=== PATIENT | female | born 1990 | race African-American/Black ===

== ENCOUNTER 2019-04-01 10:16 | Emergency (ER) | payer MEDICAID, OTHER ==
[~2019-04-01] VITALS: Ht 162.6 cm; Wt 105.0 kg
[2019-04-01] MEDS ORDERED: ACETAMINOPHEN 325MG TABLET PO ONE (11:00)
[2019-04-01 11:52] VITALS: BP 127/73
== END 2019-04-01 11:56 | disposition home or self-care (01) ==
LOC: ER 10:24
DX: S00.83XA Contusion of other part of head, initial encounter (principal); S09.8XXA Other specified injuries of head, initial encounter; Y00.XXXA Assault by blunt object, initial encounter; Y93.89 Activity, other specified; Y92.018 Other place in single-family (private) house as the place of occurrence of the external cause; F12.10 Cannabis abuse, uncomplicated
CPT/HCPCS: 70486; 81025; 99284